=== PATIENT | female | born 1985 | race Caucasian/White ===

== ENCOUNTER 2017-10-24 13:46 | Inpatient (IN) | payer MEDICAID ==
[~2017-10-24] VITALS: Ht 157.5 cm; Wt 65.4 kg
[~2017-10-24 13:46] MED LIST: ACET650S21 PO; AMLO5TAB7 PO; ANTIBIOTIC PO; CALC667C PO; CARV6.2512 PO; ERGO500017 PO; ISON300T4 PO; PYRI50TA5 PO
[2017-10-24 15:26] LABS: INTERNATIONAL NORMALIZED RATIO 0.92 (0.93-1.1); PROTHROMBIN TIME 9.6 Seconds (9.6-11.5)
[2017-10-24 15:30] LABS: ALBUMIN 4.2 g/dL (3.4-5.0); ANION GAP 11 mmol/L (5-15); CALCIUM 10.5 mg/dL (8.5-10.1); CHLORIDE 99 mmol/L (98-107); CREATININE 7.54 mg/dL (0.55-1.02)
[2017-10-24] MEDS ORDERED: ACETAMINOPHEN 325 MG TABLET PO PRN (16:00)
[2017-10-24] MEDS ORDERED: ERGOCALCIFEROL 50,000 UNIT CAPSULE PO SCH (16:00)
[2017-10-24] MEDS ORDERED: ONDANSETRON ODT 4 MG PO PRN (16:00)
[2017-10-24 16:04] LABS: MEAN CORPUSCULAR HEMOGLOBIN 29.6 pg (27.0-34.8); MEAN CORPUSCULAR HGB CONC 33.5 g/dL (32.4-35.8); MEAN CORPUSCULAR VOLUME 88.3 fL (80-100); PLATELET COUNT 238 x10^3/uL (130-400); RED BLOOD COUNT 4.61 x10^6/uL (3.82-5.3); RED CELL DISTRIBUTION WIDTH 13.6 % (9.6-15.2)
[2017-10-24 16:05] LABS: MEAN PLATELET VOLUME 10.1 fL (7.4-10.4)
[2017-10-24 16:08] LABS: BASOPHILS # (AUTO) 0.05 x10^3/uL (0-0.1); BASOPHILS % (AUTO) 0 % (0-1); EOSINOPHILS # (AUTO) 0.43 x10^3/uL (0-0.4); EOSINOPHILS % (AUTO) 3 % (1-7); LYMPHOCYTES # (AUTO) 2.51 x10^3/uL (1-3.4); LYMPHOCYTES % (AUTO) 17 % (22-44); MD SCAN; MONOCYTES % (AUTO) 3 % (2-9); NEUTROPHILS # (AUTO) 11.63 x10^3/uL (1.8-6.8); NEUTROPHILS % (AUTO) 77 % (42-75)
[2017-10-24] MEDS ORDERED: CATHFLO-ALTEPLASE 2 MG/2 ML CATHFLUSH ONE ×2 (19:00)
[2017-10-24] MEDS: CALCIUM ACETATE 667 MG CAPSULE PO SCH (20:13)
[2017-10-24] MEDS: CARVEDILOL 6.25 MG TABLET PO SCH (20:13)
[2017-10-24 20:15] VITALS: BP 126/84
[2017-10-25 01:53] VITALS: BP 116/79
[2017-10-25] MEDS: CARVEDILOL 6.25 MG TABLET PO SCH (05:14)
[2017-10-25 05:48] LABS: BASOPHILS # (AUTO) 0.04 x10^3/uL (0-0.1); BASOPHILS % (AUTO) 0 % (0-1); EOSINOPHILS # (AUTO) 0.26 x10^3/uL (0-0.4); EOSINOPHILS % (AUTO) 3 % (1-7); LYMPHOCYTES # (AUTO) 2.33 x10^3/uL (1-3.4); LYMPHOCYTES % (AUTO) 24 % (22-44); MD NO; MEAN CORPUSCULAR HEMOGLOBIN 29.9 pg (27.0-34.8); MEAN CORPUSCULAR HGB CONC 34.1 g/dL (32.4-35.8); MEAN CORPUSCULAR VOLUME 87.6 fL (80-100); MEAN PLATELET VOLUME 9.7 fL (7.4-10.4); MONOCYTES # (AUTO) 0.64 x10^3/uL (0.2-0.8); MONOCYTES % (AUTO) 7 % (2-9); NEUTROPHILS # (AUTO) 6.54 x10^3/uL (1.8-6.8); NEUTROPHILS % (AUTO) 67 % (42-75); PLATELET COUNT 190 x10^3/uL (130-400); RED BLOOD COUNT 3.73 x10^6/uL (3.82-5.3); RED CELL DISTRIBUTION WIDTH 13.4 % (9.6-15.2)
[2017-10-25 05:49] LABS: ANION GAP 11 mmol/L (5-15); CALCIUM 8.9 mg/dL (8.5-10.1); CHLORIDE 103 mmol/L (98-107)
[2017-10-25 05:50] LABS: CREATININE 9.53 mg/dL (0.55-1.02)
[2017-10-25 07:44] VITALS: BP 114/75
[2017-10-25] MEDS: CALCIUM ACETATE 667 MG CAPSULE PO SCH ×2 (08:00→13:38)
[2017-10-25] MEDS ORDERED: PYRIDOXINE 50MG TABLET PO SCH (09:00)
[2017-10-25] MEDS ORDERED: ISONIAZID 300 MG TABLET PO SCH (09:00)
[2017-10-25] MEDS ORDERED: AMLODIPINE 5 MG TABLET PO SCH (09:00)
[2017-10-25] MEDS ORDERED: FENTANYL PF 100 MCG/2ML ONE ×2 (11:00)
[2017-10-25] MEDS ORDERED: NALOXONE 1 MG/ML, 2ML ONE (11:01)
[2017-10-25] MEDS ORDERED: FLUMAZENIL 0.1 MG/1 ML, 5ML ONE (11:01)
[2017-10-25] MEDS ORDERED: MIDAZOLAM 1 MG/ML, 5ML ONE (11:01)
[2017-10-25] MEDS ORDERED: LIDOCAINE-MPF 2%, 2ML ONE (12:12)
[2017-10-25] MEDS ORDERED: VISIPAQUE 270 MG/ML, 50ML BOTTLE ONE (13:05)
== END 2017-10-25 17:20 | disposition home or self-care (01) | DRG 314 ==
LOC: ED 14:36 → EDIP 15:42 → 4WST 18:33
PROVIDERS: ADMIT Hospitalist; ATTEND Internal Medicine
PROC: 5A1D70Z Performance of Urinary Filtration, Intermittent, Less than 6 Hours Per Day (ICD-10-PCS; principal; 2017-10-25)
PROC: 02PAX3Z Removal of Infusion Device from Heart, External Approach (ICD-10-PCS; 2017-10-25)
PROC: 02HV33Z Insertion of Infusion Device into Superior Vena Cava, Percutaneous Approach (ICD-10-PCS; 2017-10-25)
PROC: B5181ZA Fluoroscopy of Superior Vena Cava using Low Osmolar Contrast, Guidance (ICD-10-PCS; 2017-10-25)
DX: T82.41XA Breakdown (mechanical) of vascular dialysis catheter, initial encounter (principal); N18.6 End stage renal disease; E87.1 Hypo-osmolality and hyponatremia; I13.2 Hypertensive heart and chronic kidney disease with heart failure and with stage 5 chronic kidney disease, or end stage renal disease; Y92.89 Other specified places as the place of occurrence of the external cause; D63.1 Anemia in chronic kidney disease; D72.829 Elevated white blood cell count, unspecified; E83.52 Hypercalcemia; I25.2 Old myocardial infarction; I50.9 Heart failure, unspecified; R76.11 Nonspecific reaction to tuberculin skin test without active tuberculosis; Y71.2 Prosthetic and other implants, materials and accessory cardiovascular devices associated with adverse incidents; Z83.3 Family history of diabetes mellitus; Z99.2 Dependence on renal dialysis
CPT/HCPCS: 36415; 36581; 75984; 80048; 82040; 85025; 85610; 99156; 99157; 99285; C1725; G0378; J2250; J2997; J3010; J3490; Q9966; C1750; C1769; J1642; J2310